=== PATIENT | female | born 1945 | race Two or more races ===

== ENCOUNTER 2025-05-06 09:00 | Day surgery (SDC) | payer OTHER ==
[~2025-05-06 09:00] MED LIST: NORVASC2.5 MG PO; ZESTRIL5 MG PO
[2025-05-06] MEDS ORDERED: CEFTRIAXONE SODIUM 2,000 MG VIAL ONE (09:47)
[2025-05-06] MEDS ORDERED: METRONIDAZOLE/SODIUM CHLORIDE 500 MG/100 ML PIGGYBACK IV ONE (09:47)
[2025-05-06] MEDS ORDERED: POVIDONE-IODINE 118 ML BOTT TOP ONE (11:10)
[2025-05-06] MEDS ORDERED: DIBUCAINE 30 GM TUBE ONE (11:10)
[2025-05-06] MEDS ORDERED: HEMOSTATIC MATRIX 1 KIT KIT TOP ONE (11:10)
[2025-05-06] MEDS ORDERED: BUPIVACAINE HCL/MPF 0.5% 30ML VIAL ONE (11:10)
[2025-05-06] MEDS ORDERED: LIDOCAINE HCL 1%/EPINEPHRINE 20ML VIAL IJ ONE (11:11)
== END 2025-05-06 17:20 | disposition home or self-care (01) ==
LOC: CIR.AMB 09:00
PROVIDERS: ATTEND Colon & Rectal Surgery
DX: K64.2 Third degree hemorrhoids (principal); K64.4 Residual hemorrhoidal skin tags